=== PATIENT | male | born 1975 | race African-American/Black ===

== ENCOUNTER 2016-12-25 15:38 | Emergency (ER) | payer MEDICAID, OTHER ==
[~2016-12-25] VITALS: Ht 172.7 cm; Wt 74.0 kg
[~2016-12-25 15:38] MED LIST: HCTZ; LISINOPRIL
[2016-12-25] MEDS ORDERED: SODIUM CHLORIDE 0.9% 1,000 ML IV ONE (16:02)
[2016-12-25] MEDS ORDERED: LORAZEPAM 2MG/ML CPJ IV STA (16:02)
[2016-12-25] MEDS ORDERED: DILTIAZEM HCL 5MG/ML 5ML VIAL IV ONE (16:15)
[2016-12-25 16:27] LABS: BASOPHILS % 0.3 % (0.0-2.0); EOSINOPHILS % 0.3 % (0.0-5.0); HEMATOCRIT. 44.8 % (42.0-52.0); HEMOGLOBIN. 14.5 g/dL (14.0-18.0); LYMPHOCYTES % 8.8 % (20.0-50.0); MEAN CORPUSCULAR HEMOGLOBIN 23.6 pg (28.0-32.0); MEAN PLATELET VOLUME 9.4 fl (7.4-10.4); MONOCYTES % 4.6 % (2.0-8.0); PLATELET 242 x1000/uL (130-400); RED BLOOD CELL COUNT 6.13 mill/uL (4.7-6.1); RED CELL DISTRIBUTION WIDTH 16.6 % (11.6-14.6)
[2016-12-25 16:36] LABS: CARBON DIOXIDE 28 mEq/L (21-32); CHLORIDE 101 mEq/L (98-107); ETHANOL BLOOD < 10 mg/dL; TROPONIN I < 0.02 ng/mL (0.00-0.04)
[2016-12-25 18:13] LABS: *AMPHETAMINES SCREEN URINE PRESUMTIVE POSITIVE (NEGATIVE); *BARBITURATES SCREEN URINE NEGATIVE (NEGATIVE); *BENZODIAZEPINES SCREEN URINE NEGATIVE (NEGATIVE); *COCAINE SCREEN URINE NEGATIVE (NEGATIVE); CANNABINOID URINE SCREEN NEGATIVE (NEGATIVE); METHADONE URINE SCREEN NEGATIVE (NEGATIVE); OPIATES URINE SCREEN NEGATIVE (NEGATIVE); PHENCYCLIDINE URINE SCREEN PRESUMTIVE POSITIVE (NEGATIVE)
[2016-12-25 22:18] VITALS: BP 163/113
== END 2016-12-25 22:36 | disposition home or self-care (01) ==
LOC: ER 15:44
DX: S01.312A Laceration without foreign body of left ear, initial encounter (principal); F16.129 Hallucinogen abuse with intoxication, unspecified; F15.129 Other stimulant abuse with intoxication, unspecified; R44.1 Visual hallucinations; R00.0 Tachycardia, unspecified; I10 Essential (primary) hypertension; W22.09XA Striking against other stationary object, initial encounter; Y93.89 Activity, other specified; Y92.810 Car as the place of occurrence of the external cause
CPT/HCPCS: 12013; 36415; 80053; 80305; 84484; 85025; 93005; 96361; 96374; 96375; 99285; G0482; J2060; J3490; X7700; Z7610; 12002; J7030

== ENCOUNTER 2017-01-10 09:41 | Emergency (ER) | payer OTHER ==
[~2017-01-10] VITALS: Ht 162.6 cm; Wt 64.0 kg
[2017-01-10 09:49] VITALS: BP 133/93
== END 2017-01-10 11:13 | disposition home or self-care (01) ==
LOC: ER 09:41
DX: Z48.02 Encounter for removal of sutures (principal); I10 Essential (primary) hypertension; F19.10 Other psychoactive substance abuse, uncomplicated
CPT/HCPCS: 99282; Z7610

== ENCOUNTER 2017-01-25 02:05 | Emergency (ER) | payer OTHER ==
[~2017-01-25] VITALS: Ht 172.7 cm; Wt 68.0 kg
[2017-01-25 03:34] LABS: CARBON DIOXIDE 28 mEq/L (21-32); CHLORIDE 103 mEq/L (98-107); ETHANOL BLOOD < 10 mg/dL
[2017-01-25 03:38] LABS: HEMATOCRIT. 44.3 % (42.0-52.0); HEMOGLOBIN. 14.1 g/dL (14.0-18.0); MEAN CORPUSCULAR HEMOGLOBIN 23.4 pg (28.0-32.0); MEAN CORPUSCULAR VOLUME 73.5 fL (80.0-94.0); MEAN PLATELET VOLUME 9.4 fl (7.4-10.4); PLATELET 250 x1000/uL (130-400); RED BLOOD CELL COUNT 6.02 mill/uL (4.7-6.1); RED CELL DISTRIBUTION WIDTH 16.2 % (11.6-14.6)
[2017-01-25] MEDS ORDERED: SODIUM CHLORIDE 0.9% 1,000 ML IV ONE (03:47)
[2017-01-25 04:00] LABS: BASOPHILS % 0.8 % (0.0-2.0); EOSINOPHILS % 5.2 % (0.0-5.0); LYMPHOCYTES % 33.2 % (20.0-50.0); MONOCYTES % 8.4 % (2.0-8.0); NEUTROPHILS % 52.4 % (40.0-76.0)
[2017-01-25 06:50] VITALS: BP 110/72
== END 2017-01-25 07:00 | disposition home or self-care (01) ==
LOC: ER 02:05
DX: R53.83 Other fatigue (principal); E86.0 Dehydration; I10 Essential (primary) hypertension; F19.10 Other psychoactive substance abuse, uncomplicated
CPT/HCPCS: 36415; 80048; 85025; 93005; 99285; G0482; J7030

== ENCOUNTER 2022-02-15 02:44 | Inpatient (IN) | payer OTHER ==
[~2022-02-15] VITALS: Ht 162.6 cm; Wt 59.9 kg
[2022-02-15] MEDS ORDERED: CALCIUM GLUCONATE 100MG/ML 10ML VIAL IV ONE (03:00)
[2022-02-15] MEDS ORDERED: ASPIRIN 81MG TABLET PO ONE (03:00)
[2022-02-15 04:14] LABS: BASOPHILS % 0.4 % (0.0-2.0); EOSINOPHILS % 0.4 % (0.0-5.0); HEMATOCRIT. 42.4 % (42.0-52.0); HEMOGLOBIN. 13.5 g/dL (14.0-18.0); LYMPHOCYTES % 14.2 % (20.0-50.0); MEAN CORPUSCULAR HEMOGLOBIN 24.4 pg (28.0-32.0); MEAN CORPUSCULAR VOLUME 76.6 fL (80.0-94.0); MEAN PLATELET VOLUME 9.8 fl (7.4-10.4); MONOCYTES % 6.7 % (2.0-8.0); NEUTROPHILS % 78.3 % (40.0-76.0); PLATELET 318 x1000/uL (130-400); RED BLOOD CELL COUNT 5.54 mill/uL (4.7-6.1); RED CELL DISTRIBUTION WIDTH 16.5 % (11.6-14.6)
[2022-02-15 04:22] LABS: CHLORIDE 103 mEq/L (98-107)
[2022-02-15] MEDS ORDERED: CALCIUM GLUCONATE 100MG/ML 10ML VIAL IV NR (04:30)
[2022-02-15 04:34] LABS: ETHANOL BLOOD < 10 mg/dL
[2022-02-15 06:38] LABS: *AMPHETAMINES SCREEN URINE PRESUMTIVE POSITIVE (NEGATIVE); *BARBITURATES SCREEN URINE NEGATIVE (NEGATIVE); *BENZODIAZEPINES SCREEN URINE NEGATIVE (NEGATIVE); *COCAINE SCREEN URINE NEGATIVE (NEGATIVE); CANNABINOID URINE SCREEN PRESUMTIVE POSITIVE (NEGATIVE); METHADONE URINE SCREEN NEGATIVE (NEGATIVE); OPIATES URINE SCREEN NEGATIVE (NEGATIVE); PHENCYCLIDINE URINE SCREEN PRESUMTIVE POSITIVE (NEGATIVE)
[2022-02-15] MEDS ORDERED: LORAZEPAM 2MG/ML CPJ IV PRN (08:15)
[2022-02-15 12:00] VITALS: BP 103/68
[2022-02-15] MEDS ORDERED: FUROSEMIDE 20MG/2ML VIAL IVP NR (12:00)
[2022-02-15] MEDS ORDERED: ACETAMINOPHEN 325MG TABLET PO PRN (12:00)
[2022-02-15] MEDS ORDERED: ONDANSETRON HCL 4MG/2ML INJ IV PRN (12:00)
[2022-02-15] MEDS: METHYLPREDNISOLONE SOD SUCC 40 MG/ML VIAL IV SCH ×2 (13:19→21:20)
[2022-02-15] MEDS: IPRATROPIUM BROMIDE (0.02%) 0.5MG/2.5ML NEB HHN SCH ×3 (15:41→23:53)
[2022-02-15 16:00] VITALS: BP 119/85
[2022-02-15 20:00] VITALS: BP 127/93
[2022-02-16] VITALS: BP 127/82
[2022-02-16 04:00] VITALS: BP 122/87
[2022-02-16] MEDS: IPRATROPIUM BROMIDE (0.02%) 0.5MG/2.5ML NEB HHN SCH ×5 (04:02→20:06)
[2022-02-16] MEDS: METHYLPREDNISOLONE SOD SUCC 40 MG/ML VIAL IV SCH ×3 (05:37→21:13)
[2022-02-16 08:07] VITALS: BP 130/101
[2022-02-16] MEDS ORDERED: CARVEDILOL 3.125 MG TABLET PO SCH (09:00)
[2022-02-16] MEDS: FAMOTIDINE 20MG/2ML VIAL IV SCH (09:16)
[2022-02-16 12:00] VITALS: BP 127/69
[2022-02-16] MEDS ORDERED: CARVEDILOL 12.5MG TABLET PO NR (12:30)
[2022-02-16 16:00] VITALS: BP 100/74
[2022-02-16] MEDS: CLONIDINE 0.1MG TABLET PO SCH (17:00)
[2022-02-16 20:00] VITALS: BP 115/81
[2022-02-17] VITALS: BP 116/77
[2022-02-17] MEDS: IPRATROPIUM BROMIDE (0.02%) 0.5MG/2.5ML NEB HHN SCH ×5 (00:17→15:45)
[2022-02-17 04:00] VITALS: BP 110/82
[2022-02-17] MEDS: METHYLPREDNISOLONE SOD SUCC 40 MG/ML VIAL IV SCH ×2 (05:31→13:19)
[2022-02-17 08:00] VITALS: BP 113/85
[2022-02-17] MEDS: CLONIDINE 0.1MG TABLET PO SCH ×2 (08:14→17:16)
[2022-02-17] MEDS: FAMOTIDINE 20MG/2ML VIAL IV SCH (08:14)
[2022-02-17 12:00] VITALS: BP 106/68
[2022-02-17] MEDS ORDERED: CARV3.1242 MT (12:04)
[2022-02-17] MEDS ORDERED: LOSA25TA26 MT (12:04)
[2022-02-17] MEDS ORDERED: FLUT1DIS3 INH (12:04)
[2022-02-17] MEDS ORDERED: ALBU18HF2 IH (12:04)
[2022-02-17] MEDS ORDERED: P20 MT (12:04)
[2022-02-17 14:27] VITALS: BP 106/68
[2022-02-17 16:00] VITALS: BP 120/75
== END 2022-02-17 19:10 | disposition home or self-care (01) | DRG 140 ==
LOC: ER 02:44 → EDBEDREQTM 04:28 → EDBEDREQ 04:28 → MICUSO 05:52 → 8WST 13:00
PROVIDERS: ADMIT Internal Medicine; ATTEND Internal Medicine
DX: J44.1 Chronic obstructive pulmonary disease with (acute) exacerbation (principal); J96.00 Acute respiratory failure, unspecified whether with hypoxia or hypercapnia; E44.0 Moderate protein-calorie malnutrition; F19.10 Other psychoactive substance abuse, uncomplicated; I11.0 Hypertensive heart disease with heart failure; I50.9 Heart failure, unspecified; Z20.822 Contact with and (suspected) exposure to COVID-19; F17.210 Nicotine dependence, cigarettes, uncomplicated; Z68.22 Body mass index [BMI] 22.0-22.9, adult
CPT/HCPCS: 36415; 71045; 80053; 80305; 80320; 83605; 83880; 84145; 84484; 85025; 86850; 86900; 87426; 93005; 93306; 99285; J0610; J1940; J2060; J2405; J2920; J3490; G0480

== ENCOUNTER 2022-04-22 22:05 | Emergency (ER) | payer OTHER ==
[~2022-04-22] VITALS: Ht 162.6 cm; Wt 57.0 kg
[~2022-04-22 22:05] MED LIST changes: +ALBU18HF2 IH; +CARV3.1242 MT; +FLUT1DIS3 INH; +LOSA25TA26 MT; +P20 MT
[2022-04-23 02:51] LABS: BASOPHILS % 0.8 % (0.0-2.0); EOSINOPHILS % 11.8 % (0.0-5.0); HEMATOCRIT. 36.1 % (42.0-52.0); HEMOGLOBIN. 11.2 g/dL (14.0-18.0); LYMPHOCYTES % 21.1 % (20.0-50.0); MEAN CORPUSCULAR HEMOGLOBIN 22.5 pg (28.0-32.0); MEAN CORPUSCULAR VOLUME 72.6 fL (80.0-94.0); MEAN PLATELET VOLUME 10.3 fl (7.4-10.4); MONOCYTES % 7.8 % (2.0-8.0); NEUTROPHILS % 58.5 % (40.0-76.0); PLATELET 324 x1000/uL (130-400); RED BLOOD CELL COUNT 4.97 mill/uL (4.7-6.1); RED CELL DISTRIBUTION WIDTH 16.6 % (11.6-14.6)
[2022-04-23 03:01] LABS: CHLORIDE 110 mEq/L (98-107)
[2022-04-23 03:40] VITALS: BP 124/91
[2022-04-23] MEDS ORDERED: BISM-169 PO (03:40)
[2022-04-23] MEDS ORDERED: METR-167 PO (03:40)
[2022-04-23 05:06] LABS: CLARITY URINE CLEAR (CLEAR); COLOR URINE YELLOW (YELLOW); KETONES URINE TRACE (NEGATIVE); LEUKOCYTE ESTERASE URINE TRACE (NEGATIVE); NITRITE URINE NEGATIVE (NEGATIVE); OCCULT BLOOD URINE NEGATIVE (NEGATIVE); PH URINE 5.5 (4.5-8.0); PROTEIN URINE TRACE (NEGATIVE); SPECIFIC GRAVITY URINE 1.023 (1.005-1.030)
== END 2022-04-23 05:40 | disposition home or self-care (01) ==
LOC: ER 22:19
DX: K52.1 Toxic gastroenteritis and colitis (principal); T36.95XA Adverse effect of unspecified systemic antibiotic, initial encounter; Y92.9 Unspecified place or not applicable
CPT/HCPCS: 36415; 80053; 81003; 85025; 99283

== ENCOUNTER 2022-06-06 20:29 | Emergency (ER) | payer OTHER ==
[~2022-06-06] VITALS: Ht 172.7 cm; Wt 73.0 kg
[~2022-06-06 20:29] MED LIST changes: +BISM-169 PO; +METR-167 PO
[2022-06-06 21:49] LABS: BASOPHILS % 1.2 % (0.0-2.0); EOSINOPHILS % 12.5 % (0.0-5.0); HEMATOCRIT. 34.6 % (42.0-52.0); HEMOGLOBIN. 11.2 g/dL (14.0-18.0); LYMPHOCYTES % 31.6 % (20.0-50.0); MEAN CORPUSCULAR HEMOGLOBIN 24.7 pg (28.0-32.0); MEAN PLATELET VOLUME 9.6 fl (7.4-10.4); NEUTROPHILS % 47.7 % (40.0-76.0); PLATELET 228 x1000/uL (130-400); RED BLOOD CELL COUNT 4.55 mill/uL (4.7-6.1); RED CELL DISTRIBUTION WIDTH 20.7 % (11.6-14.6)
[2022-06-06 21:56] LABS: CHLORIDE 104 mEq/L (98-107)
[2022-06-07] MEDS ORDERED: FUROSEMIDE 100MG/10ML VIAL IVP ONE
[2022-06-07] MEDS ORDERED: IPRATROPIUM/ALBUTEROL 0.5-3(2.5)MG/3ML NEB HHN NR
[2022-06-07] MEDS ORDERED: FUROSEMIDE 40MG/4ML VIAL IVP NR (00:15)
[2022-06-07] MEDS ORDERED: POTASSIUM CHLORIDE 20MEQ TABLET SR PO NR (00:15)
[2022-06-07 03:00] VITALS: BP 105/70
== END 2022-06-07 06:37 | disposition short-term general hospital (02) ==
LOC: ER 20:29
DX: J44.1 Chronic obstructive pulmonary disease with (acute) exacerbation (principal); J45.901 Unspecified asthma with (acute) exacerbation; R77.8 Other specified abnormalities of plasma proteins; M79.89 Other specified soft tissue disorders; I11.0 Hypertensive heart disease with heart failure; I50.9 Heart failure, unspecified; F13.10 Sedative, hypnotic or anxiolytic abuse, uncomplicated; Z79.899 Other long term (current) drug therapy
CPT/HCPCS: 36415; 71045; 80053; 83880; 84484; 85025; 93005; 94640; 96374; 99285; J1940; Z7610

== ENCOUNTER 2022-12-09 12:29 | Emergency (ER) | payer OTHER ==
[~2022-12-09] VITALS: Ht 162.6 cm; Wt 59.0 kg
[~2022-12-09 12:29] MED LIST changes: +ASPI-1406 PO; +ERGO1250 PO; +FURO40TA5 PO; -HCTZ; -LISINOPRIL; -LOSA25TA26 MT; -METR-167 PO; -P20 MT; +P20 PO; +POTA10CA83 PO; +SACU1TAB PO
[2022-12-09 12:47] VITALS: O2SAT 98
[2022-12-09] MEDS ORDERED: ACETAMINOPHEN 325MG TABLET PO STA (13:00)
[2022-12-09] MEDS ORDERED: ACET-2708 PO (13:47)
[2022-12-09 14:00] VITALS: BP 118/88; PULSE 88; RESP 16; TEMP 98.8
== END 2022-12-09 14:02 | disposition home or self-care (01) ==
LOC: ER 12:46
DX: M54.50 Low back pain, unspecified (principal); J45.909 Unspecified asthma, uncomplicated; I11.0 Hypertensive heart disease with heart failure; I50.9 Heart failure, unspecified
CPT/HCPCS: 71045; 72100; 99284

== ENCOUNTER 2023-01-14 01:58 | Emergency (ER) | payer OTHER ==
[~2023-01-14] VITALS: Ht 170.2 cm; Wt 70.0 kg
[~2023-01-14 01:58] MED LIST changes: +ACET-2708 PO
[2023-01-14 02:03] VITALS: TEMP 98.2; O2SAT 100
[2023-01-14] MEDS ORDERED: METHYLPREDNISOLONE SOD SUCC 125MG/2ML (ACT-O-VIAL) IV STA (02:35)
[2023-01-14] MEDS ORDERED: IPRATROPIUM BROMIDE (0.02%) 0.5MG/2.5ML NEB HHN STA (02:35)
[2023-01-14 02:40] VITALS: PULSE 112; RESP 24
[2023-01-14] MEDS ORDERED: ALBUTEROL (0.083%) 2.5MG/3ML NEB HHN SCH (03:00)
[2023-01-14 03:10] VITALS: PULSE 110; RESP 22
[2023-01-14 03:23] LABS: DIFFERENTIAL COMMENT 0; EOSINOPHILS % 5.9 % (0.0-5.0); HEMATOCRIT. 37.1 % (42.0-52.0); HEMOGLOBIN. 11.5 g/dL (14.0-18.0); LYMPHOCYTES % 34.6 % (20.0-50.0); MEAN CORPUSCULAR HEMOGLOBIN 23.8 pg (28.0-32.0); MEAN CORPUSCULAR VOLUME 76.8 fL (80.0-94.0); MONOCYTES % 8.2 % (2.0-8.0); NEUTROPHILS % 50.3 % (40.0-76.0); PLATELET 297 x1000/uL (130-400); RED BLOOD CELL COUNT 4.84 mill/uL (4.7-6.1); RED CELL DISTRIBUTION WIDTH 18.2 % (11.6-14.6); WHITE BLOOD COUNT 5.5 x1000/uL (4.5-11.0)
[2023-01-14 03:38] LABS: ALANINE AMINOTRANSFERASE 26 IU/L (10-49); ALBUMIN 3.8 g/dL (3.2-4.8); ASPARTATE AMINOTRANSFERASE 30 IU/L (<34); BILIRUBIN TOTAL 1.4 mg/dL (0.1-1.0); CALCIUM 8.9 mg/dL (8.7-10.4); CARBON DIOXIDE 25 mEq/L (21-32); CHLORIDE 107 mEq/L (98-107); CREATININE 1.3 mg/dL (0.6-1.3); GLUCOSE 123 mg/dL (70-105); POTASSIUM 3.6 mEq/L (3.5-5.1); PROTEIN TOTAL 5.8 g/dL (6.0-8.3); SODIUM 143 mEq/L (136-145); UREA NITROGEN BLOOD 18 mg/dL (9-23)
[2023-01-14 03:40] VITALS: PULSE 108; RESP 22
[2023-01-14 03:49] LABS: TROPONIN I HIGH SENSITIVITY 111 ng/L (3.0-53)
[2023-01-14 03:50] LABS: INR 1.2; PARTIAL THROMBOPLASTIN TIME 30.6 sec (23.4-31.0); PROTHROMBIN TIME 13.1 sec (9.6-11.0)
[2023-01-14 04:10] VITALS: PULSE 108; RESP 22
[2023-01-14] MEDS ORDERED: FUROSEMIDE 40MG/4ML VIAL IVP SCH (06:30)
[2023-01-14] MEDS ORDERED: FUROSEMIDE 20MG/2ML VIAL IVP ONE (06:30)
[2023-01-14 11:51] LABS: TROPONIN I HIGH SENSITIVITY 141 ng/L (3.0-53)
[2023-01-14 19:07] VITALS: BP 143/90; PULSE 99; RESP 20
== END 2023-01-14 19:11 | disposition short-term general hospital (02) ==
LOC: ER 01:58
DX: R06.02 Shortness of breath (principal); J45.909 Unspecified asthma, uncomplicated
CPT/HCPCS: 80053; 83880; 85025; 85610; 85730; 84484; 36415; 71045; 94640; 93005; 99285; Z7610 ×7; C1893; J1940

== ENCOUNTER 2024-04-10 19:04 | Emergency (ER) | payer MEDICAID ==
[~2024-04-10] VITALS: Ht 162.6 cm; Wt 63.5 kg
[~2024-04-10 19:04] MED LIST changes: +APIX5TAB PO; +BUME2TAB34 MT; +CARV3.1242 PO; -FURO40TA5 PO; -P20 PO; +POTA-205 MT; -POTA10CA83 PO; +SPIR25TA PO
[2024-04-10 19:17] VITALS: BP 111/81; PULSE 99; RESP 16; TEMP 36.7; O2SAT 97
== END 2024-04-10 22:43 | disposition left against medical advice (07) ==
LOC: ER 19:07
DX: R42 Dizziness and giddiness (principal); J45.909 Unspecified asthma, uncomplicated; I11.0 Hypertensive heart disease with heart failure; I50.9 Heart failure, unspecified; Z53.21 Procedure and treatment not carried out due to patient leaving prior to being seen by health care provider
CPT/HCPCS: 93005; Z7610

== ENCOUNTER 2024-08-29 22:21 | Emergency (ER) | payer MEDICAID, OTHER ==
[~2024-08-29] VITALS: Ht 167.6 cm; Wt 72.0 kg
[2024-08-29 22:29] VITALS: O2SAT 100
[2024-08-29] MEDS: ACETAMINOPHEN 500MG TABLET PO ONE (23:35)
[2024-08-30 00:37] VITALS: BP 129/100; PULSE 101; RESP 18; TEMP 36.7; O2SAT 100
== END 2024-08-30 00:44 ==
LOC: ER 22:55
DX: Z02.79 Encounter for issue of other medical certificate (principal); J44.89 Other specified chronic obstructive pulmonary disease; I50.9 Heart failure, unspecified; Z79.899 Other long term (current) drug therapy
CPT/HCPCS: 71101; 99283